=== PATIENT | male | born 1995 | race Caucasian/White ===

== ENCOUNTER 2017-06-28 11:11 | Emergency (ER) | payer SELFPAY ==
[~2017-06-28] VITALS: Ht 177.8 cm; Wt 70.0 kg
[2017-06-28 11:14] VITALS: BP 136/81; PULSE 76; TEMP 98.7
== END 2017-06-28 12:18 | disposition home or self-care (01) ==
LOC: COL.ER 11:11
DX: S61.211A Laceration without foreign body of left index finger without damage to nail, initial encounter (principal); Z23 Encounter for immunization; W26.0XXA Contact with knife, initial encounter